=== PATIENT | male | born 1960 | race Caucasian/White ===

== ENCOUNTER 2024-12-31 06:57 | Outpatient (CLI) | payer MEDICARE, BC, SELFPAY ==
--- NOTE | 2024-12-31 08:30 | W.ANESCHARGE ---
Anesthesia Charges Start Date/Time Anesthesia Start Date: 12/31/24 Anesthesia Start Time: 08:15 Stop Date/Time Anesthesia Stop Date: 12/31/24 Anesthesia Stop Time: 08:32 Coding CPT Codes CPT Codes: ANES UPR GI NDSC PX NOS - [id number] ([id number]) P3 - PATIENT W/SEVERE SYS DISEASE, QX - PROPERTY PRESERVATION SPECIALIST SVC W/ MD MED DIRECTION, QK - ANIMAL HUMANE AGENT SUPERVISOR 2-4 CNCRNT ANES PROC
--- NOTE | 2024-12-31 09:24 | W.ANESCHARGE ---
Anesthesia Charges Start Date/Time Anesthesia Start Date: 12/31/24 Anesthesia Start Time: 08:15 Stop Date/Time Anesthesia Stop Date: 12/31/24 Anesthesia Stop Time: 08:32 Coding CPT Codes CPT Codes: ANES UPR GI NDSC PX NOS - 71251 ([id number]) QK - AIRCRAFT MACHINIST 2-4 CNCRNT ANES PROC, QX - OPERATIONS OFFICER AFLOAT SVC W/ MD MED DIRECTION, P3 - PATIENT W/SEVERE SYS DISEASE
== END 2024-12-31 06:58 | disposition home or self-care (01) ==
LOC: OP CLINIC 07:03
PROVIDERS: PCP Student in an Organized Health Care Education/Training Program; Visit Provider Internal Medicine Gastroenterology
DX: R10.13 Epigastric pain (principal); K21.00 Gastro-esophageal reflux disease with esophagitis, without bleeding; K22.89 Other specified disease of esophagus
CPT/HCPCS: 00731; 43239; 88305; J2704; J3490